=== PATIENT | male | born 1970 | race Native Hawaiian/Other Pacific Islander ===

== ENCOUNTER 2020-03-07 00:52 | Emergency (ER) | payer BC ==
[~2020-03-07] VITALS: Ht 177.8 cm; Wt 79.4 kg
[2020-03-07 01:38] LABS: PLATELET COUNT 259 K/uL (142-355)
[2020-03-07 01:50] LABS: POTASSIUM 4.2 mmol/L (3.6-5.2); SODIUM 136 mmol/L (136-145)
[2020-03-07 05:00] VITALS: BP 138/89; TEMP 97.8
== END 2020-03-07 05:00 | disposition home or self-care (01) ==
LOC: ED 00:52
PROVIDERS: Family Medicine
DX: K85.80 Other acute pancreatitis without necrosis or infection (principal); K76.0 Fatty (change of) liver, not elsewhere classified
CPT/HCPCS: 36415; 80053; 81000; 82150; 82550; 83690; 84484; 85027; 93005; 96360; 96375; 99284; J1885; J2405; J3490; Q9963

== ENCOUNTER 2020-03-10 08:19 | Outpatient (CLI) | payer BC | END 2020-03-10 19:29 | disposition home or self-care (01) | LOC: US 08:19 | PROVIDERS: ATTEND Internal Medicine | DX: R79.89 Other specified abnormal findings of blood chemistry (principal); K76.0 Fatty (change of) liver, not elsewhere classified; K21.9 Gastro-esophageal reflux disease without esophagitis ==

== ENCOUNTER 2020-03-13 09:07 | Outpatient (CLI) | payer BC ==
[2020-03-13 09:42] LABS: PLATELET COUNT 240 K/uL (142-355)
[2020-03-13 10:03] LABS: POTASSIUM 4.7 mmol/L (3.6-5.2)
== END 2020-03-13 18:55 | disposition home or self-care (01) ==
LOC: LABW 09:07
PROVIDERS: ATTEND Internal Medicine Gastroenterology
DX: R94.5 Abnormal results of liver function studies (principal); K75.81 Nonalcoholic steatohepatitis (NASH)
CPT/HCPCS: 80053; 80074; 82103; 82150; 82172; 82247; 82390; 82465; 82525; 82728; 82947; 82977; 83010; 83516; 83540; 83550; 83690; 83883; 84450; 84460; 84466; 84478; 85027; 86038

== ENCOUNTER 2021-10-17 08:34 | Outpatient (CLI) | payer BC | END 2021-10-17 18:58 | disposition home or self-care (01) | LOC: CT 08:34 | PROVIDERS: ATTEND Internal Medicine | DX: M79.89 Other specified soft tissue disorders (principal) | CPT/HCPCS: Q9963 ==